=== PATIENT | male | born 1965 | race Caucasian/White ===

== ENCOUNTER 2018-02-17 06:31 | Emergency (ER) | payer OTHER ==
[~2018-02-17] VITALS: Ht 188 cm; Wt 117.9 kg
[~2018-02-17 06:31] MED LIST: DAILY VITE1 EAC1 PO; FLEXERIL10 MG PO; JANUMET 50/11 TABLET PO; LANTUS 3 M100 UNITS1 SC; LIPITOR80 MG PO; LO-DOSE ASPIRIN81 M1 PO; MOBIC15 MG PO; MOTRIN800 MG PO; NORCO 7.5/321 TABLET PO; PLAVIX75 MG PO; QUESTRAN PACKET4 GM PO; VALIUM5 MG PO; ZESTRIL2.5 MG PO
[2018-02-17] MEDS ORDERED: ULTRAM50 MG PO (09:20)
[2018-02-17] MEDS ORDERED: LIDODERM 5% P1 PATCH TD (09:21)
[2018-02-17 09:29] VITALS: BP 130/69
== END 2018-02-17 09:32 | disposition home or self-care (01) ==
LOC: EME 06:31
DX: M54.41 Lumbago with sciatica, right side (principal); M16.12 Unilateral primary osteoarthritis, left hip; M16.11 Unilateral primary osteoarthritis, right hip; E11.40 Type 2 diabetes mellitus with diabetic neuropathy, unspecified; Z79.4 Long term (current) use of insulin; E78.5 Hyperlipidemia, unspecified; Z79.82 Long term (current) use of aspirin; Z87.891 Personal history of nicotine dependence
CPT/HCPCS: 73502; 99281; 99283